=== PATIENT | female | born 1990 | race Asian ===

== ENCOUNTER → 2016-07-12 | Outpatient (CLI) | payer OTHER ==
[~2016-07-12] MED LIST: ASPI-515 PO; CEFD300C2 PO; DOCU-30 PO; FURO-93 PO; HYDR-3307 PO; MULT-212 PO; PANT40TA3 PO; POTA10TA31 PO; WARF2TAB PO
== END | disposition home or self-care (01) ==
LOC: CFH 10:49
PROVIDERS: ATTEND Internal Medicine Cardiovascular Disease
DX: I34.0 Nonrheumatic mitral (valve) insufficiency (principal)
CPT/HCPCS: 93306